=== PATIENT | female | born 1995 | race Caucasian/White ===

== ENCOUNTER 2016-11-17 18:52 | Emergency (ER) | payer OTHER ==
--- NOTE | 2016-11-17 19:28 | ER Document Report ---
ED Medical Screen (RME) - General Chief Complaint: Abdominal Pain Stated Complaint: BELLY BUTTON PAIN Mode of Arrival: Ambulatory Information source: Patient Notes: 21 y/o F presents to ED c/o mid abd pain intermittently persistent over the last 3 weeks. States approximately 16 wks . SA 3. Denies fever, vaginal bleeding or discharge. I have greeted and performed a rapid initial assessment of this patient. A comprehensive ED assessment and evaluation of the patient, analysis of test results and completion of the medical decision making process will be conducted by additional ED providers. TRAVEL OUTSIDE OF THE [place] IN LAST 30 DAYS: No - Related Data Allergies/Adverse Reactions: No Known Allergies Allergy (Unverified 09/02/16 23:54) Past Medical History Pulmonary Medical History: Reports: Hx Asthma Renal/ Medical History: Reports: Hx Ovarian Cysts Physical Exam - General General appearance: Appears well, Alert In distress: None
[2016-11-17 19:39] LABS: APPEARANCE,URINE SLIGHTLY-CLOUDY; BILIRUBIN,URINE NEGATIVE (NEGATIVE); GLUCOSE, URINE NEGATIVE (NEGATIVE); KETONES,URINE NEGATIVE (NEGATIVE); LEUKOCYTE ESTERASE,URINE NEGATIVE (NEGATIVE); NITRITE,URINE NEGATIVE (NEGATIVE); PROTEIN,URINE NEGATIVE (NEGATIVE); URINE SPECIFIC GRAVITY 1.003; UROBILINOGEN,URINE NEGATIVE mg/dL (<2.0)
[2016-11-17 19:47] LABS: ABSOLUTE BASOPHILS # (AUTO) 0.1 10^3/uL (0.0-0.2); ABSOLUTE EOSINOPHILS # (AUTO) 0.1 10^3/uL (0.0-0.6); ABSOLUTE LYMPHOCYTES (AUTO) 1.4 10^3/uL (0.5-4.7); ABSOLUTE MONOCYTES (AUTO) 0.6 10^3/uL (0.1-1.4); ABSOLUTE NEUT (AUTO) 9.8 10^3/uL (1.7-8.2); BASOPHILS % (AUTO) 0.4 % (0-2); HEMOGLOBIN 13.2 g/dL (12.0-15.5); HGB HCT DIFFERENCE 0.6; LYMPHOCYTES % (AUTO) 11.5 % (13-45); MEAN CORPUSCULAR HEMOGLOBIN 30.3 pg (27.0-33.4); MEAN CORPUSCULAR HGB CONC 33.8 g/dL (32.0-36.0); MEAN CORPUSCULAR VOLUME 90 fl (80-97); MONOCYTES % (AUTO) 4.9 % (3-13); RED BLOOD COUNT 4.35 10^6/uL (3.72-5.28); RED CELL DISTRIBUTION WIDTH 13.7 % (11.5-14.0); SEGMENTED NEUTROPHILS % (AUTO) 82.2 % (42-78); WHITE BLOOD COUNT 11.9 10^3/uL (4.0-10.5)
[2016-11-17 20:06] LABS: ALANINE AMINOTRANSFERASE 23 U/L (9-52); ALBUMIN 4.1 g/dL (3.5-5.0); ALKALINE PHOSPHATASE 55 U/L (38-126); ANION GAP 9 (5-19); ASPARTATE AMINO TRANSFERASE 15 U/L (14-36); BILIRUBIN,TOTAL 0.7 mg/dL (0.2-1.3); BLOOD UREA NITROGEN 8 mg/dL (7-20); CALCIUM 9.6 mg/dL (8.4-10.2); CARBON DIOXIDE 25 mmol/L (22-30); CHLORIDE 104 mmol/L (98-107); GLUCOSE 92 mg/dL (75-110); LIPASE 77.1 U/L (23-300); POTASSIUM 3.7 mmol/L (3.6-5.0); SODIUM 138.2 mmol/L (137-145); TOTAL PROTEIN 6.7 g/dL (6.3-8.2)
--- NOTE | 2016-11-17 22:41 | ER Document Report ---
ED General - General Chief Complaint: Abdominal Pain Stated Complaint: BELLY BUTTON PAIN Mode of Arrival: Ambulatory Notes: Patient is a 21-year-old female presents with complaints of mild pain of the bellybutton. She says that when she will waste down she notices that the lower part of her bellybutton pushes up slightly. She has slight tenderness in this area. She is currently . She is unsure if this pain could be related to her . She's had no dysuria. No abnormal vaginal discharge or bleeding. No further abdominal pain. No vomiting. No fevers. No complications with her thus far. No vaginal bleeding. TRAVEL OUTSIDE OF THE [place] IN LAST 30 DAYS: No - Related Data Allergies/Adverse Reactions: No Known Allergies Allergy (Unverified 09/02/16 23:54) Past Medical History - General Information source: Patient - Social History Smoking Status: Unknown if Ever Smoked Frequency of alcohol use: None Drug Abuse: None Family History: Reviewed & Not Pertinent Patient has suicidal ideation: No Patient has homicidal ideation: No Pulmonary Medical History: Reports: Hx Asthma Neurological Medical History: Reports: Hx Migraine Renal/ Medical History: Reports: Hx Ovarian Cysts. Denies: Hx Peritoneal Dialysis Review of Systems - Review of Systems Notes: My Normal Review Basic REVIEW OF SYSTEMS: CONSTITUTIONAL : Denies fever, chills, or sweats. Denies recent illness. RESPIRATORY: Denies cough, cold, or chest congestion. Denies shortness of breath, difficulty breathing, or wheezing. GASTROINTESTINAL: Mild pain of her bellybutton. Denies nausea, vomiting, or diarrhea. Denies constipation. Last BM: GENITOURINARY: Denies difficulty urinating, painful urination, burning, frequency, or blood in urine. FEMALE GENITOURINARY: Denies vaginal bleeding, abnormal or irregular periods. LMP: MUSCULOSKELETAL: Denies neck or back pain or joint pain or swelling. SKIN: Denies rash or skin lesions. NEUROLOGICAL: Denies altered mental status or loss of consciousness. Denies headache. Denies weakness or paralysis or loss of use of either side. Denies problems with gait or speech. Denies sensory or motor loss. ALL OTHER SYSTEMS REVIEWED AND NEGATIVE. Physical Exam - Vital signs Vitals: Temp Pulse Resp BP Pulse Ox 98.9 F 82 18 110/68 99 11/17/16 23:03 11/17/16 23:03 11/17/16 23:03 11/17/16 23:03 11/17/16 23:03 - Notes Notes: General Appearance: Well nourished, alert, cooperative, no acute distress, no obvious discomfort. Well-appearing. Vitals: reviewed, See vital signs table. Head: no swelling or tenderness to the head Eyes: PERRL, EOMI, Conjuctiva clear Mouth: No decreasd moisture Lungs: No wheezing, No rales, No rhonci, No accessory muscle use, good air exchange bilaterally. Heart: Normal rate, Regular rythm, No murmur, no rub Abdomen: Normal BS, soft, No rigidity, I feel no local hernia on palpation. Patient is just very minimal tenderness to palpation over the umbilicus. Remainder of abdomen is nontender with exception of just very mild suprapubic tenderness to palpation., No guarding, no rebound, no abdominal masses, no organomegaly Extremities: strength 5/5 in all extremities, good pulses in all extremities, no swelling or tenderness in the extremities, no edema. Skin: warm, dry, appropriate color, no rash Neuro: speech clear, oriented x 3, normal affect, responds appropriately to questions. Course - Vital Signs Vital signs: Temp Pulse Resp BP Pulse Ox 98.9 F 82 18 110/68 99 11/17/16 23:03 11/17/16 23:03 11/17/16 23:03 11/17/16 23:03 11/17/16 23:03 - Laboratory Result Diagrams: 11/17/16 19:36 11/17/16 19:36 Laboratory results interpreted by me: 11/17/16 11/17/16 19:36 19:36 WBC 11.9 H Seg Neutrophils % 82.2 H Lymphocytes % 11.5 L Absolute Neutrophils 9.8 H Creatinine 0.50 L Beta HCG, Quant 47674.00 H - Transfer of Care Notes: 11/18/16 03:15 Patient does have slight protrusion of her bellybutton when she lays flat. This is to be expected being that she is and her abdomen abdominal circumference is enlarging. I did not feel any hernia on palpation. I feel that she is safe to be discharged home. Ultrasound was ordered in triage and obtained in was normal. Patient encouraged return to ER she has worsening pain or feels unwell or has fevers. Patient encouraged return to ER she has any abnormal vaginal discharge, dysuria, or vaginal bleeding. Patient kimmieef follow up closely with her OB doctor for close reevaluation. Patient agrees with plan will be discharged home. Dictation of this chart was performed using voice recognition software; therefore, there may be some unintended grammatical errors. Discharge - Discharge Clinical Impression: Periumbilical pain Qualifiers: Weeks of gestation: unspecified Qualified Code(s): Z33.1 - state, incidental Condition: Good Disposition: HOME, SELF-CARE Additional Instructions: Please follow-up with your OB doctor in 2 to 3 days for close reevaluation. Please return to ER immediately if you have fevers, worsening or spreading abdominal pain, any abnormal vaginal discharge or bleeding, or feel unwell. Referrals: HILARY MILLER MD [Primary Care Provider] - 11/19/16
[2016-11-17 23:07] VITALS: BP 110/68
== END 2016-11-17 23:03 | disposition home or self-care (01) ==
LOC: ER 18:52
DX: O26.892 Other specified pregnancy related conditions, second trimester (principal); R10.33 Periumbilical pain; O99.512 Diseases of the respiratory system complicating pregnancy, second trimester; J45.909 Unspecified asthma, uncomplicated; Z3A.17 17 weeks gestation of pregnancy
CPT/HCPCS: 36415; 76805; 80053; 81001; 83690; 84702; 85025; 87086; 87088; 99284

== ENCOUNTER 2016-12-20 22:05 | Emergency (ER) | payer OTHER ==
[2016-12-20] MEDS ORDERED: ACETAMINOPHEN 325 MG TABLET PO ONE (23:14)
--- NOTE | 2016-12-21 01:01 | ER Document Report ---
HPI - HPI Patient complains to provider of: right foot injury Pain Level: 4 Context: Patient is a 21-year-old female at 21 weeks gestation that comes emergency department for chief complaint of right foot injury, she states that she was unfolding a bed from the couch and the frame landed on her right foot. She states that a small cut happened to the top of her foot with swelling, she complains that she cannot walk without a lot of pain in her foot. She reports she is up-to-date on her tetanus within 5 years. - REPRODUCTIVE Reproductive: REPORTS: : - DERM Skin Color: Normal Past Medical History - General Information source: Patient - Social History Smoking Status: Never Smoker Frequency of alcohol use: None Drug Abuse: None Lives with: Family Family History: Reviewed & Not Pertinent Pulmonary Medical History: Reports: Hx Asthma Neurological Medical History: Reports: Hx Migraine Renal/ Medical History: Reports: Hx Ovarian Cysts. Denies: Hx Peritoneal Dialysis Surgical Hx: Negative - Immunizations Immunizations up to date: Yes Hx Diphtheria, Pertussis, Tetanus Vaccination: Yes Vertical Provider Document - CONSTITUTIONAL General Appearance: WD/WN, No Apparent Distress - INFECTION CONTROL TRAVEL OUTSIDE OF THE [place] IN LAST 30 DAYS: No - HEENT HEENT: Atraumatic, Normocephalic - NECK Neck: Normal Inspection - RESPIRATORY Respiratory: Breath Sounds Normal, No Respiratory Distress O2 Sat by Pulse Oximetry: 100 - CARDIOVASCULAR Cardiovascular: Regular Rate, Regular Rhythm - GI/ABDOMEN Gastrointestinal: Abdomen Soft, Abdomen Non-Tender - BACK Back: Normal Inspection - MUSCULOSKELETAL/EXTREMETIES Musculoskeletal/Extremeties: MAEW, FROM, Tender - There is an abrasion over the dorsal aspect of the right foot with mild surrounding soft tissue swelling and ecchymosis, full range of motion and nontender examination of the ankle, normal capillary refill and sensation, normal dorsalis pedis. Normal lower extremity exam otherwise. - NEURO Level of Consciousness: Awake, Alert, Appropriate - DERM Integumentary: Warm, Dry, No Rash Course - Re-evaluation Re-evalutation: Small abrasion over the dorsal aspect of the right foot, there is a mild amount of soft tissue swelling on examination and also seen on x-ray, no fracture is seen on x-ray imaging. Agent with no neurovascular deficits, no other injuries reported. Patient given crutches, wound and foot treatment instructions, return precautions. Patient states understanding and agreement. - Vital Signs Vital signs: Temp Pulse Resp BP Pulse Ox 98.4 F 87 20 106/60 100 12/20/16 22:23 12/20/16 22:23 12/20/16 22:23 12/20/16 22:23 12/20/16 22:23 Discharge - Discharge Clinical Impression: Skin abrasion Foot injury Qualifiers: Encounter type: initial encounter Laterality: right Qualified Code(s): S99.921A - Unspecified injury of right foot, initial encounter Condition: Stable Disposition: HOME, SELF-CARE Additional Instructions: There is soft tissue swelling in the foot from the injury, however no fracture is seen. Apply topical antibiotic to the abrasion site, elevate her foot, use the crutches for the first 2-3 days if needed, apply ice 2-3 times a day for about 15 minutes. Follow-up with primary care. Return to emergency department for any concerning symptoms including redness, severe swelling, or any other concerning symptoms.
[2016-12-21 01:47] VITALS: BP 107/65
== END 2016-12-21 01:45 | disposition home or self-care (01) ==
LOC: ER 22:05
DX: O9A.212 Injury, poisoning and certain other consequences of external causes complicating pregnancy, second trimester (principal); S90.31XA Contusion of right foot, initial encounter; W20.8XXA Other cause of strike by thrown, projected or falling object, initial encounter; Y93.89 Activity, other specified; O99.512 Diseases of the respiratory system complicating pregnancy, second trimester; J45.909 Unspecified asthma, uncomplicated; Z3A.21 21 weeks gestation of pregnancy
CPT/HCPCS: 99283

== ENCOUNTER → 2017-02-24 | Outpatient (CLI) | payer OTHER ==
[2017-02-24 17:05] LABS: ADD HIVPANEL? NO; HIV (1 AND 2) ANTIBODY NEGATIVE (NEGATIVE)
== END ==
LOC: LAB 15:40
PROVIDERS: ATTEND Student in an Organized Health Care Education/Training Program
DX: Z34.83 Encounter for supervision of other normal pregnancy, third trimester (principal); Z11.59 Encounter for screening for other viral diseases; Z11.3 Encounter for screening for infections with a predominantly sexual mode of transmission; Z11.4 Encounter for screening for human immunodeficiency virus [HIV]
CPT/HCPCS: 36415; 86592; 86701

== ENCOUNTER 2017-04-19 18:29 | Outpatient (CLI) | payer OTHER ==
[2017-04-19 19:10] LABS: AMNISURE (ROM) NEGATIVE (NEGATIVE)
[2017-04-19 19:20] LABS: APPEARANCE,URINE SLIGHTLY-CLOUDY; BILIRUBIN,URINE NEGATIVE (NEGATIVE); GLUCOSE, URINE NEGATIVE (NEGATIVE); KETONES,URINE NEGATIVE (NEGATIVE); LEUKOCYTE ESTERASE,URINE TRACE (NEGATIVE); NITRITE,URINE NEGATIVE (NEGATIVE); PROTEIN,URINE NEGATIVE (NEGATIVE); URINE SPECIFIC GRAVITY 1.005; UROBILINOGEN,URINE NEGATIVE mg/dL (<2.0)
[2017-04-19 19:34] LABS: URINE BARBITURATES SCREEN NEGATIVE; URINE METHADONE SCREEN NEGATIVE; URINE OPIATES LOW NEGATIVE; URINE PHENCYCLIDINE SCREEN NEGATIVE
--- NOTE | 2017-04-19 20:39 | Non Stress Test Report ---
Non Stress Test Datetime Report Generated by CPN: 04/19/2017 20:39 DEMOGRAPHIC Test Number: 1 EGA NST: 38.4 INDICATION Indication for Study: Ordered by Provider URINE RESULTS Urine Protein, NST: Negative Urine Ketones - NST: Negative Urine Glucose - NST: Negative Urine Blood - NST: Negative MONITORING Monitor Explained: Monitor Explained; Test Explained; Patient Verbalized Understanding Time on Monitor: 04/19/2017 18:54 Time off Monitor: 04/19/2017 20:00 NST Duration: 66 NST INTERVENTIONS NST Interventions: None Physician Notified NST: Dr. Kee BABY A: [id number] BABY A Movement : Present Contraction Frequency : Occasional FHR Baseline : 135 Accelerations : 15X15 Decelerations : None Variability : Moderate 6-25bpm NST Review: Meets Criteria for Reactive NST NST Review and Verified By : Lars He RN NST Results: Reactive NST REPORT Report Trigger: Send Report
== END 2017-04-19 20:26 | disposition home or self-care (01) ==
LOC: LC 18:29
PROVIDERS: ATTEND Obstetrics & Gynecology
PROC: 4A1HXCZ Monitoring of Products of Conception, Cardiac Rate, External Approach (ICD-10-PCS; principal; 2017-04-19)
DX: O47.1 False labor at or after 37 completed weeks of gestation (principal); Z3A.38 38 weeks gestation of pregnancy
CPT/HCPCS: 59025; 80307; 81005; 84112

== ENCOUNTER 2017-05-01 00:56 | Outpatient (CLI) | payer OTHER ==
[2017-05-01 01:22] LABS: APPEARANCE,URINE CLOUDY; BILIRUBIN,URINE NEGATIVE (NEGATIVE); GLUCOSE, URINE NEGATIVE (NEGATIVE); KETONES,URINE NEGATIVE (NEGATIVE); LEUKOCYTE ESTERASE,URINE TRACE (NEGATIVE); NITRITE,URINE NEGATIVE (NEGATIVE); PROTEIN,URINE NEGATIVE (NEGATIVE); URINE SPECIFIC GRAVITY 1.008; UROBILINOGEN,URINE NEGATIVE mg/dL (<2.0)
[2017-05-01 01:44] LABS: URINE BARBITURATES SCREEN NEGATIVE; URINE METHADONE SCREEN NEGATIVE; URINE OPIATES LOW NEGATIVE; URINE PHENCYCLIDINE SCREEN NEGATIVE
--- NOTE | 2017-05-01 01:52 | Non Stress Test Report ---
Non Stress Test Datetime Report Generated by CPN: 05/01/2017 01:51 DEMOGRAPHIC Test Number: 1 EGA NST: 40.2 INDICATION Indication for Study: Ordered by Provider VITAL SIGNS Temperature - NST: 97.9 Pulse - NST: 88 RESP - NST: 18 NBPSYS NST: 101 NBPDIA NST: 58 MONITORING Monitor Explained: Monitor Explained; Test Explained; Patient Verbalized Understanding Time on Monitor: 05/01/2017 01:14 Time off Monitor: 05/01/2017 01:36 NST Duration: 22 NST INTERVENTIONS NST Interventions: PO Hydration Physician Notified NST: Cornejo BABY A: [id number] BABY A Movement : Present Contraction Frequency : 4-8 FHR Baseline : 120 Accelerations : 15X15 Decelerations : None Variability : Moderate 6-25bpm NST Review: Meets Criteria for Reactive NST NST Review and Verified By : Zaira Choi RN NST Results: Reactive NST REPORT Report Trigger: Send Report
[2017-05-01] MEDS ORDERED: PENICILLIN G-K 5 MILLION UNIT VIAL ONE (03:17)
[2017-05-01] MEDS ORDERED: PENICILLIN G-K 5 MILLION UNIT VIAL IV ONE (03:24)
[2017-05-01] MEDS ORDERED: PROMETHAZINE HCL INJ 25 MG/1 ML VIAL IV ONE (05:12)
[2017-05-01] MEDS ORDERED: PROMETHAZINE HCL INJ 25 MG/1 ML VIAL ONE (05:14)
[2017-05-01] MEDS ORDERED: RINGERS SOLUTION,LACTATED 1,000 ML IV PRN (10:00)
[2017-05-01] MEDS ORDERED: RINGERS SOLUTION,LACTATED 1,000 ML IV ONE (10:00)
[2017-05-01] MEDS ORDERED: PENICILLIN G POTASSIUM 5,000,000 UNIT in DEXTROSE 5%-WATER 100 ML IV ONE (10:00)
[2017-05-01] MEDS ORDERED: ACETAMINOPHEN WITH CODEINE #3 TABLET PO PRN ×2 (12:00)
[2017-05-01] MEDS ORDERED: OXYTOCIN/NORMAL SALINE 1,000 ML IV PRN (12:00)
[2017-05-01] MEDS ORDERED: DIPH/PERTUSS(ACELL)/TETANUS VAC/PF 0.5 ML SYR (>=10YO) IM PRN (12:00)
[2017-05-01] MEDS ORDERED: MEASLES,MUMPS&RUBELLA VACC/PF 0.5 ML VIAL SUBCUT PRN (12:00)
[2017-05-01] MEDS ORDERED: DIBUCAINE 1% OINTMENT 28 GM TP PRN (14:43)
[2017-05-01] MEDS ORDERED: BENZOCAINE/MENTHOL AEROSOL SPRAY 56 ML TOP PRN (14:43)
[2017-05-01] MEDS ORDERED: ZOLPIDEM TARTRATE 5 MG TABLET PO PRN (14:43)
[2017-05-01] MEDS ORDERED: DOCUSATE SODIUM 100 MG CAPSULE PO SCH (18:00)
[2017-05-01] MEDS ORDERED: FERROUS SULFATE 325 MG TABLET PO SCH (18:00)
[2017-05-01] MEDS ORDERED: IBUPROFEN 800 MG TABLET PO SCH (22:00)
[2017-05-02] MEDS ORDERED: PRENATAL VITAMIN W-O CA NO5/FE FUMARATE/FA CAPSULE PO SCH (10:00)
[2017-05-02] MEDS ORDERED: SENNOSIDES/DOCUSATE 8.6-50 MG 1 EACH TABLET PO SCH (18:00)
== END 2017-05-01 05:28 | disposition home or self-care (01) ==
LOC: LC 00:56
PROVIDERS: ATTEND Student in an Organized Health Care Education/Training Program
PROC: 4A1HXCZ Monitoring of Products of Conception, Cardiac Rate, External Approach (ICD-10-PCS; principal; 2017-05-01)
DX: O47.1 False labor at or after 37 completed weeks of gestation (principal); Z3A.40 40 weeks gestation of pregnancy
CPT/HCPCS: 59025; 81005; 80307; J2540; J2550

== ENCOUNTER 2017-05-01 09:51 | Inpatient (IN) | payer OTHER ==
[2017-05-01] MEDS ORDERED: LIDOCAINE 1% INJ-PF (10 MG/ML) 30 ML SDV ONE (10:13)
[2017-05-01] MEDS ORDERED: MISOPROSTOL 0.2 MG TABLET ONE (10:13)
[2017-05-01] MEDS ORDERED: PENICILLIN G-K 5 MILLION UNIT VIAL ONE (10:13)
[2017-05-01] MEDS ORDERED: OXYTOCIN/NORMAL SALINE 20 UNIT/1,000 ML RTUINJ ONE (10:13)
[2017-05-01 10:47] LABS: ABSOLUTE LYMPHOCYTES (AUTO) 0.9 10^3/uL (0.5-4.7); ABSOLUTE MONOCYTES (AUTO) 0.6 10^3/uL (0.1-1.4); ABSOLUTE NEUT (AUTO) 14.3 10^3/uL (1.7-8.2); BASOPHILS % (AUTO) 0.2 % (0-2); EOSINOPHILS % (AUTO) 0.1 % (0-6); HEMATOCRIT 37.1 % (36.0-47.0); HGB HCT DIFFERENCE -1.1; LYMPHOCYTES % (AUTO) 5.7 % (13-45); MEAN CORPUSCULAR HEMOGLOBIN 29.5 pg (27.0-33.4); MEAN CORPUSCULAR HGB CONC 32.3 g/dL (32.0-36.0); MEAN CORPUSCULAR VOLUME 91 fl (80-97); RED BLOOD COUNT 4.08 10^6/uL (3.72-5.28); RED CELL DISTRIBUTION WIDTH 15.9 % (11.5-14.0); WHITE BLOOD COUNT 15.9 10^3/uL (4.0-10.5)
[2017-05-01] MEDS ORDERED: IBUPROFEN 800 MG TABLET ONE (13:09)
--- NOTE | 2017-05-01 15:45 | Admission Physical ---
Datetime Report Generated by CPN: 05/01/2017 15:45 CURRENT ADMISSION Chief Complaint: Uterine Contractions Admit Plan: Admit to Unit ALLERGIES Medication Allergies: Yes Medication Allergies: No Known Allergies (05/01/2017) Medication Allergies: No Known Allergies (12/20/2016) Latex: No Latex Allergies Food Allergies: None Environmental Allergies: None OBSTETRICAL HISTORY EDC: 04/29/2017 00:00 : 4 Para: 0 Term: 0 : 0 SAB: 2 IAB: 0 Ectopic: 0 Livin Cesareans: 0 VBACs: 0 Multiple Births: 0 Gestational Diabetes: No Rh Sensitization: No Incompetent Cervix: No MIKAYLA: No Infertility: No ART Treatment: No Uterine Anomaly: No IUGR: No Hx Previous C/S: No Macrosomia: No Hx Loss/Stillborn: No PIH: No Hx : No Placenta Previa/Abruption: No Depression/PP Depression: No PTL/PROM: No Post Hemorrhage: No Current Procedures: Ultrasound; NST Obstetrical History Comments: G1 - 2009 SAB (all prior to 12 weeks, no u/s) G2 - 2014 SAB G3 - 05/2016 SAB G4 - Current SEE RECORDS Alcohol: No Marijuana : No Cocaine: No Other Illicit Drugs: No Cigarettes: Never Smoker. 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: No Heart Disease: No Hosp/Surgery: Yes Autoimmune Disorder: No Anesthetic Complications: No Kidney Disease: No Abnormal Pap Smear: No Neuro/Epilepsy: No Psychiatric Disorders: No Other Medical Diseases: No Hepatitis/Liver Disease: No Significant Family History: No Varicosities/Phlebitis: No Trauma/Violence : No Thyroid Dysfunction: No Medical History Comments: Asthma (uses rescue inhaler PRN), had mononucleousis as a child and was hospitalized, wisdom teeth removal INFECTIOUS HISTORY Gonorrhea: No Genital Herpes: No Chlamydia: No Tuberculosis: No Syphilis: No Hepatitis: No HIV/AIDS Exposure: No Rash or Viral Illness: No HPV: No Infectious History Comments: denies PHYSICAL EXAM General: Normal HEENT: Normal Neurologic: Normal Thyroid: Normal Heart: Normal Lungs: Normal Breast: Normal Back: Normal Abdomen: Normal Genitourinary Exam: Normal Extremities: Normal DTRs: Normal Pelvic Type: Adequate Vital Signs: Reviewed VAGINAL EXAM Dilatation: 10 Effacement: 100 Station: -1 MEMBRANES Membranes: Intact FETUS A EGA: 40.2 Monitoring: External US Variability: Moderate 6-25bpm Decelerations: Early FHR Category: Category I Presentation: Vertex Admit Comment: 21 yo presents in active labor EDC 04/29/17 EGA 40.2 intact membranes GBS positive Asthma admit GBS prophylaxis - one dose received at labor check one dose now pt breathing through contractions with great control anticipate PLANS FOR LABOR AND DELIVERY Labor and Delivery: Plan Pain Management: Natural Feeding Preference: Breast Benefit of Breast Feed Discussed: Yes Circumcision: N/A INFORMED CONSENT Informed Consent Obtained: Vaginal Delivery; Risks, Benefits and Alternatives Discussed Assignment: Charleen Grimaldo MD Signature: with User ID: [email or web address] : with User ID: [email or web address]
[2017-05-01] MEDS ORDERED: ACETAMINOPHEN WITH CODEINE #3 TABLET PO PRN (18:38)
[2017-05-01] MEDS ORDERED: ZOLPIDEM TARTRATE 5 MG TABLET PO PRN (18:38)
[2017-05-01] MEDS ORDERED: OXYTOCIN/NORMAL SALINE 1,000 ML IV PRN (18:38)
[2017-05-01] MEDS ORDERED: MAGNESIUM HYDROXIDE SUSP 30 ML UDCUP PO PRN (18:38)
[2017-05-01] MEDS ORDERED: DIPH/PERTUSS(ACELL)/TETANUS VAC/PF 0.5 ML SYR (>=10YO) IM PRN (18:38)
[2017-05-01] MEDS ORDERED: PROMETHAZINE HCL 25 MG TABLET PO PRN (18:38)
[2017-05-01] MEDS ORDERED: DIPHENHYDRAMINE HCL 25 MG CAPSULE PO PRN (18:38)
[2017-05-01] MEDS ORDERED: GLYCERIN/WITCH HAZEL LEAF 1 EACH MED..PAD TP PRN (18:38)
[2017-05-01] MEDS ORDERED: ACETAMINOPHEN 650 MG SUPP.RECT PR PRN (18:38)
[2017-05-01] MEDS ORDERED: PROMETHAZINE HCL 25 MG SUPP.RECT PR PRN (18:38)
[2017-05-01] MEDS ORDERED: PSEUDOEPHEDRINE HCL 30 MG TABLET PO PRN (18:38)
[2017-05-01] MEDS ORDERED: MEASLES,MUMPS&RUBELLA VACC/PF 0.5 ML VIAL SUBCUT PRN (18:38)
[2017-05-01] MEDS ORDERED: NA PHOS,M-B/NA PHOS,DI-BA (ADULT) 133 ML ENEMA PR PRN (18:38)
[2017-05-01] MEDS ORDERED: BENZOCAINE/MENTHOL AEROSOL SPRAY 56 ML TOP PRN (18:38)
[2017-05-01] MEDS ORDERED: DIBUCAINE 1% OINTMENT 28 GM TP PRN (18:38)
[2017-05-01] MEDS ORDERED: PROMETHAZINE HCL INJ 25 MG/1 ML VIAL IV PRN (18:38)
[2017-05-01] MEDS: ACETAMINOPHEN WITH CODEINE #3 TABLET PO PRN (18:58)
[2017-05-01] MEDS: IBUPROFEN 800 MG TABLET PO SCH (21:37)
[2017-05-01] MEDS: FAMOTIDINE 20 MG TABLET PO SCH (21:37)
[2017-05-02] MEDS: IBUPROFEN 800 MG TABLET PO SCH ×3 (05:59→22:35)
[2017-05-02 07:43] LABS: HEMATOCRIT 32.4 % (36.0-47.0); HEMOGLOBIN 10.8 g/dL (12.0-15.5); MEAN CORPUSCULAR HGB CONC 33.2 g/dL (32.0-36.0); MEAN CORPUSCULAR VOLUME 90 fl (80-97); RED BLOOD COUNT 3.59 10^6/uL (3.72-5.28); RED CELL DISTRIBUTION WIDTH 16.5 % (11.5-14.0); WHITE BLOOD COUNT 10.6 10^3/uL (4.0-10.5)
--- NOTE | 2017-05-02 09:03 | PDOC PROGRESS REPORT ---
Subjective-OB Subjective: Post Delivery Day: 21 year old. Denies any needs at this time Physical Exam (OB) Vital Signs: Temp Pulse Resp BP Pulse Ox 97.7 F 80 15 101/57 L 99 05/02/17 07:55 05/02/17 07:55 05/02/17 07:55 05/02/17 07:55 05/02/17 07:55 - Lochia Lochia Amount: Moderate 25-50 ml Lochia Color: Rubra/Red - Abdomen Description: Soft Hernia Present: No Bowel Sounds: Normoactive Flatus Presence: Present Stool: No Fundal Description: Firm Fundal Height: u/u - u/2 Objective-Diagnostic Laboratory: 05/02/17 07:30 05/01/17 05/01/17 05/02/17 10:30 10:30 07:30 WBC 15.9 H 10.6 H RBC 4.08 3.59 L Hgb 12.0 10.8 L Hct 37.1 32.4 L MCV 91 90 MCH 29.5 30.0 MCHC 32.3 33.2 RDW 15.9 H 16.5 H Plt Count 187 173 Seg Neutrophils % 90.0 H Lymphocytes % 5.7 L Monocytes % 4.0 Eosinophils % 0.1 Basophils % 0.2 Absolute Neutrophils 14.3 H Absolute Lymphocytes 0.9 Absolute Monocytes 0.6 Absolute Eosinophils 0.0 Absolute Basophils 0.0 Blood Type A POSITIVE Antibody Screen NEGATIVE
[2017-05-02] MEDS: SENNOSIDES/DOCUSATE 8.6-50 MG 1 EACH TABLET PO SCH (09:53)
[2017-05-02] MEDS: PRENATAL VITAMIN W-O CA NO5/FE FUMARATE/FA CAPSULE PO SCH (09:53)
[2017-05-02] MEDS: DOCUSATE SODIUM 100 MG CAPSULE PO SCH ×2 (09:53→17:54)
[2017-05-02] MEDS: FERROUS SULFATE 325 MG TABLET PO SCH ×2 (09:54→17:55)
[2017-05-02] MEDS: FAMOTIDINE 20 MG TABLET PO SCH ×2 (09:54→22:35)
[2017-05-02] MEDS: ACETAMINOPHEN WITH CODEINE #3 TABLET PO PRN (11:28)
[2017-05-03] MEDS: IBUPROFEN 800 MG TABLET PO SCH (05:56)
[2017-05-03 08:25] VITALS: BP 109/67
[2017-05-03] MEDS: FAMOTIDINE 20 MG TABLET PO SCH (09:48)
[2017-05-03] MEDS: SENNOSIDES/DOCUSATE 8.6-50 MG 1 EACH TABLET PO SCH (09:48)
[2017-05-03] MEDS: PRENATAL VITAMIN W-O CA NO5/FE FUMARATE/FA CAPSULE PO SCH (09:48)
[2017-05-03] MEDS: DOCUSATE SODIUM 100 MG CAPSULE PO SCH (09:49)
[2017-05-03] MEDS: FERROUS SULFATE 325 MG TABLET PO SCH (09:49)
--- NOTE | 2017-05-03 09:54 | PDOC PROGRESS REPORT ---
Subjective-OB Subjective: Post Delivery Day: 21 year old. Denies any needs at this time. Ready to go home. Physical Exam (OB) Vital Signs: Temp Pulse Resp BP Pulse Ox 98.0 F 84 16 109/67 100 05/03/17 07:35 05/03/17 07:35 05/03/17 07:35 05/03/17 07:35 05/03/17 07:35 - Lochia Lochia Amount: Scant < 10 ml Lochia Color: Rubra/Red - Abdomen Description: Tender, Soft, Round Hernia Present: No Bowel Sounds: Normoactive Flatus Presence: Present Stool: No Fundal Description: Firm, Midline Fundal Height: u/u - u/2 Objective-Diagnostic Laboratory: 05/02/17 07:30
--- NOTE | 2017-05-03 10:00 | PDOC DISCHARGE SUMMARY ---
Final Diagnosis Discharge Date: 05/03/17 - Final Diagnosis (1) Delivery normal Is this a current diagnosis for this admission?: Yes (2) History of asthma Is this a current diagnosis for this admission?: Yes (3) History of migraine Is this a current diagnosis for this admission?: Yes (4) Personal history of fibromyalgia Is this a current diagnosis for this admission?: Yes (5) Positive GBS test Is this a current diagnosis for this admission?: Yes (6) Is this a current diagnosis for this admission?: Yes Discharge Data - Discharge Medication Home Medications: Qad587/Iron Fumarate/FA/Dss [ 19 Tablet] 1 tab PO DAILY 04/19/17 Ferrous Sulfate [Feosol 325 mg Tablet] 325 mg PO BID #60 tablet 05/03/17 Gestational Age: 40.2 wks Reason(s) for Admission: Onset of Labor Procedures: Ultrasound Intrapartum Procedure(s): Spontaneous Vaginal Delivery Complication(s): Laceration-Vaginal Laceration-Degree: 1st - Data Baby 1 Female at 1 minute: 9 at 5 minutes: 9 Weight: 3.09 kg Home with Mother: Yes Complications: No - Diagnosis Test Laboratory: Temp Pulse Resp BP Pulse Ox 98.0 F 84 16 109/67 100 05/03/17 07:35 05/03/17 07:35 05/03/17 07:35 05/03/17 07:35 05/03/17 07:35 05/01/17 05/02/17 10:30 07:30 RBC 4.08 3.59 L Hgb 12.0 10.8 L Hct 37.1 32.4 L - Discharge information/Instructions Discharge Activity: Activity As Tolerated, Balance Activity w/Rest, Pelvic Rest , Slowly Increase Activity, No tub bath Discharge Diet: Regular Disposition: HOME, SELF-CARE Follow up with: [facility] in: 4, Weeks
--- NOTE | 2017-05-06 10:07 | Delivery Summary ---
Del Sum A-C Datetime Report Generated by CPN: 05/06/2017 10:07 DELIVERY PERSONNEL DELIVERY PERSONNEL: [phone];[phone] DELIVERY PERSONNEL: [phone] DELIVERY PERSONNEL: [phone] Delivery Doctor:: Sharon Acevedo CNM Labor and Delivery Nurse:: Deena PAZ RNlead programmer Nurse:: Lakesha Stewart RN Nursery Nurse:: Anneliese Russell RN Nursery Nurse:: Roshan Ramachandran RN Director Video/YOUTH COORDINATOR: Marybeth Arreola CNA II Director Video/YOUTH COORDINATOR: Evangelina Shore, BIOENGINEER MATERNAL INFORMATION Delivery Anesthesia: None Medications After Delivery: Pitocin Drip 20 Units/1000ml NSS Estimated Blood Loss (ml): 300 Maternal Complications: Other Other Maternal Complications: PRECIPITOUS DELIVERY Complication Details: of viable female at 1141 Nuchal cord x 1 loose Provider Comments: pt with increased urge to push bed prepared for delivery precipituous delivery bulb suctioned on perineum nuchal x 1 reduced OA infant to abdomen nursery nurses at bedside tactile stimulation elicits spont cry cord clamped x 2 and cut by FOB cord blood obtained placenta delivered intact minimal clots expelled 0.5- 1st degree vaginal laceration repaired with 2.0 chromic gut pt tolerated well bonding well with infant EBL 300 cc hemostasis achieved LABOR SUMMARY EDC: 04/29/2017 00:00 No. Babies in Womb: 1 Attempted: No Labor Anesthesia: None LABOR INFORMATION Reason for Induction: Not Applicable Complete Dilatation: 05/01/2017 11:01 Oxytocin: N/A Group B Beta Strep: Postive Antibiotics # of Doses: 2 Antibiotics Time of Last Dose: 1018 Name of Antibiotic Given: penicillin Steroids Given: None Reason Steroids Not Administered: Not Applicable MEMBRANES Membranes Rupture Method: Artificial Rupture of Membranes: 05/01/2017 11:01 Length of Rupture (hr): 0.67 Amniotic Fluid Color: Clear Amniotic Fluid Amount: Scant Amniotic Fluid Odor: Normal STAGES OF LABOR Stage 2 hr: 0 Stage 2 min: 40 Stage 3 hr: 0 Stage 3 min: 4 VAGINAL DELIVERY Episiotomy: None Laceration Extension: First Degree Laceration Type: Vaginal Other Laceration: 0.5 degree laceration with repair Laceration Repair: Yes Sponge Count Correct: N/A Sharps Count Correct: N/A BABY A INFORMATION Infant Delivery Date/Time: 05/01/2017 11:41 Method of Delivery: Vaginal Born in Route : No : N/A Forceps: N/A Vacuum Extraction: N/A Shoulder Dystocia : No ASSISTED DELIVERY BABY A Station Vacuum/Forcep Apply: resting between contractions PRESENTATION/POSITION BABY A Presentation: Cephalic Cephalic Presentation: Vertex Vertex Position: Right Occipital Anterior Breech Presentation: N/A PLACENTA INFORMATION BABY A Placenta Delivery Time : 05/01/2017 11:45 Placenta Method of Delivery: Spontaneous Placenta Status: Delivered SCORES BABY A Heart Rate 1 min: >100 bpm Resp Effort 1 min: Good Cry Reflex Irritability 1 min: Cough or Sneeze or Pulls Away Muscle Tone 1 min: Active Motion Color 1 min: Body [place], Extremities Blue Resuscitation Effort 1 min: Tactile Stimulation SCORE 1 MIN: 9 Heart Rate 5 min: >100 bpm Resp Effort 5 min: Good Cry Reflex Irritability 5 min: Cough or Sneeze or Pulls Away Muscle Tone 5 min: Active Motion Color 5 min: Body [place], Extremities Blue Resuscitation Effort 5 min: Tactile Stimulation SCORE 5 MIN: 9 INFORMATION BABY A Gestational Age at Delivery: 40.2 Gestational Status: Full Term- 39- 40.6 Weeks Outcome : Liveborn Condition : Stable Sex: Female IDENTIFICATION BABY A Verification Date/Time: 05/01/2017 12:03 ID Band Number: [id number] Mother's Name Verified: Yes Infant RN Verifying : Isi [facility] Additional Verifying Personnel: [facility] WEIGHT/LENGTH BABY A Birthweight (gm): 3080 Infant Weight (lb): 6 Weight (oz): 13 Length (in): 19.00 Infant Length (cm): 48.26 CORD INFORMATION BABY A No. Cord Vessels: 3 Nuchal Cord : Around Neck x1, Loose Cord Blood Taken: Yes-For Storage (Mom's Blood type +) Suction: Mouth; Nose ASSESSMENT BABY A Infant Complications: Multiple Variable Decels Physical Findings at Delivery: Within Normal Limits Infant Respirations: Appears Normal Skin to Skin: Yes Skin to Skin: Yes Skin to Skin: Yes Skin to Skin: Yes Skin to Skin: Yes Skin to Skin: Yes Skin to Skin: Yes Skin to Skin Time (min): 75 Station Chief/ALS Called : No Care By: Wally Mckeon RN Transferred To: Remains with Mother BABY B INFORMATION : N/A SIGNATURES Assignment: Charleen Grimaldo MD Signature: with User ID: [email or web address] : with User ID: [email or web address]
== END 2017-05-03 12:21 | disposition home or self-care (01) | DRG 775 ==
LOC: LC 09:51 → LR 10:10 → 2S 15:44
PROVIDERS: ADMIT Obstetrics & Gynecology; ATTEND Obstetrics & Gynecology
PROC: 10E0XZZ Delivery of Products of Conception, External Approach (ICD-10-PCS; principal; 2017-05-01)
PROC: 0HQ9XZZ Repair Perineum Skin, External Approach (ICD-10-PCS; 2017-05-01)
DX: O99.824 Streptococcus B carrier state complicating childbirth (principal); O62.3 Precipitate labor; O69.81X0 Labor and delivery complicated by cord around neck, without compression, not applicable or unspecified; O70.0 First degree perineal laceration during delivery; O75.89 Other specified complications of labor and delivery; J45.909 Unspecified asthma, uncomplicated; Z3A.40 40 weeks gestation of pregnancy; Z37.0 Single live birth
CPT/HCPCS: 36415; 85025; 85027; 86592; 86850; 86900; 86901; J2540; J2590; J3490